=== PATIENT | female | born 1990 | race Caucasian/White ===

== ENCOUNTER 2017-08-11 22:20 | Outpatient (CLI) | payer BC ==
[~2017-08-11] VITALS: Ht 165.1 cm; Wt 87.7 kg
[2017-08-11 22:29] VITALS: BP 131/91; PULSE 71; TEMP 98
[2017-08-11] MEDS ORDERED: PRENATAL1 TA7 PO (22:35)
[2017-08-11 22:40] VITALS: BP 120/78; PULSE 82; TEMP 98
[2017-08-11 23:30] VITALS: BP 138/81; PULSE 69
== END 2017-08-11 23:48 | disposition home or self-care (01) ==
LOC: LDRO 22:20
DX: O62.9 Abnormality of forces of labor, unspecified (principal); Z3A.39 39 weeks gestation of pregnancy

== ENCOUNTER 2017-08-12 16:18 | Inpatient (IN) | payer BC ==
[2017-08-12] VITALS (23 sets, daily range): BP systolic 111–148; BP diastolic 62–92; PULSE 54–88; TEMP 98.2–98.9
[~2017-08-12] VITALS: Ht 165.1 cm; Wt 87.7 kg
[~2017-08-12 16:18] MED LIST: PRENATAL1 TA7 PO
[2017-08-12 17:48] LABS: BASO # 0.1 (0.0-0.2); BASO % 0.3 % (0.0-2.0); GRAN # 19.4 (1.4-6.5); GRAN % 89.2 % (42.2-75.2); HEMATOCRIT 40.6 % (37.0-47.0); HEMOGLOBIN 13.9 g/dl (12.5-16.0); LYMPH # 0.7 (1.2-3.4); LYMPH % 3.3 % (20.0-51.0); MEAN CELL VOLUME 89 fl (80.0-100.0); MEAN CORPUSCULAR HEMOGLOBIN 30 pg (27.0-31.0); MEAN CORPUSCULAR HGB CONC 34 g/dl (33.0-37.0); MEAN PLATELET VOLUME 11.3 fl (7.4-10.4); MONO # 1.4 (0.1-0.6); MONO % 6.6 % (1.7-9.3); PLATELET COUNT 196 K/mm3 (130-400); RED BLOOD COUNT 4.59 M/mm3 (4.10-5.30)
[2017-08-12 17:52] LABS: WHITE BLOOD COUNT 21.8 K/mm3 (4.8-10.8)
[2017-08-13] VITALS (47 sets, daily range): BP systolic 95–149; BP diastolic 58–86; PULSE 69–133; TEMP 97.8–101.8
[2017-08-14] VITALS: BP 110/58; PULSE 68; TEMP 98.5
[2017-08-14 04:06] VITALS: BP 111/63; PULSE 66; TEMP 98.6
[2017-08-14 08:00] VITALS: BP 115/80; PULSE 72; TEMP 98.6
[2017-08-14 09:07] LABS: BASO # 0.1 (0.0-0.2); BASO % 0.3 % (0.0-2.0); EOS % 0.2 % (0-4.0); GRAN % 85.6 % (42.2-75.2); HEMOGLOBIN 12.5 g/dl (12.5-16.0); LYMPH # 1.5 (1.2-3.4); LYMPH % 7.5 % (20.0-51.0); MEAN CELL VOLUME 90 fl (80.0-100.0); MEAN CORPUSCULAR HEMOGLOBIN 30 pg (27.0-31.0); MEAN CORPUSCULAR HGB CONC 34 g/dl (33.0-37.0); MEAN PLATELET VOLUME 11.3 fl (7.4-10.4); MONO # 1.1 (0.1-0.6); MONO % 5.5 % (1.7-9.3); PLATELET COUNT 180 K/mm3 (130-400); RED BLOOD COUNT 4.11 M/mm3 (4.10-5.30)
[2017-08-14 09:15] LABS: HEMATOCRIT 36.9 % (37.0-47.0); WHITE BLOOD COUNT 19.9 K/mm3 (4.8-10.8)
[2017-08-14] MEDS ORDERED: IBU600 MG PO (10:09)
[2017-08-14] MEDS ORDERED: PERCOCET 325 MG1 TA2 PO (10:10)
[2017-08-14 16:29] VITALS: BP 126/1; PULSE 53; TEMP 98
[2017-08-14 21:40] VITALS: BP 116/65; PULSE 77; TEMP 98
[2017-08-15 08:40] VITALS: BP 120/86; PULSE 70; TEMP 98.2
== END 2017-08-15 15:10 | disposition home or self-care (01) | DRG 775 ==
LOC: LDRO 16:18 → OB 16:20 → LDR 16:20 → OB 08-13 12:00
PROVIDERS: Obstetrics & Gynecology
PROC: 10E0XZZ Delivery of Products of Conception, External Approach (ICD-10-PCS; principal; 2017-08-12)
PROC: 0KQM0ZZ Repair Perineum Muscle, Open Approach (ICD-10-PCS; 2017-08-12)
DX: O13.4 Gestational [pregnancy-induced] hypertension without significant proteinuria, complicating childbirth (principal); O41.1230 Chorioamnionitis, third trimester, not applicable or unspecified; O70.1 Second degree perineal laceration during delivery; Z3A.39 39 weeks gestation of pregnancy; Z37.0 Single live birth
CPT/HCPCS: J0290; J1580; J2590; J7050; J7120